=== PATIENT | male | born 1980 | race Caucasian/White ===

== ENCOUNTER 2019-09-04 15:52 | Inpatient (IN) | payer BC ==
[~2019-09-04 15:52] MED LIST: Iopamidol 370 76% 100 ML VIAL ONE
[2019-09-04] MEDS ORDERED: Rocuronium Bromide 10 MG/ML (10ML VIAL) ONE (16:04)
[2019-09-04 16:20] LABS: Actual Bicarbonate (HCO3a) 20.2 mEq/L (22-28); Analyzer IN Cardio ER; Base Excess (BEa) -4.9 mEq/L (-2.0 to +3.0); CO2 Tension 37.7 mmHg (35.0-45.0); Calcium, Ionized 1.27 mmol/L (1.12-1.30); Carboxyhemoglobin (COHb) 0.4 gm% (0.0-3.0); Hemoglobin (Hb) 14.8 g/dL (14.0-18.0); O2 Tension (PaO2) 63.3 mmHg (80.0-100.0); Potassium - ABG Lab 2.74 mmol/L (3.70-5.30); pH, Arterial 7.35 (7.35-7.45)
[2019-09-04 16:25] LABS: INR-International Normal Ratio 1.1; Prothrombin Time 13.8 SEC (12.0-14.7)
[2019-09-04 16:27] LABS: ALV-art Gradient 602.575 (0-20); Puncture Site RRA
[2019-09-04 16:28] LABS: #Basophils 0.1 thou/uL (0.0-0.2); #Eosinphils 0.2 thou/uL (0.0-0.7); #Lymphocytes 5.7 thou/uL (1.20-3.40); #Monocytes 0.9 thou/uL (0.11-0.59); %Eosinophils 1.1 % (0.0-10.0); %Lymphocytes 38.3 % (21.0-51.0); %Monocytes 5.7 % (0.0-10.0); %Neutrophils 53.8 % (42.0-75.0); Hemoglobin 15.2 g/dL (14.0-18.0); Mean Corpuscular HGB CONC 33.6 g/dL (32.0-36.0); Mean Corpuscular Volume 98.5 fL (78.0-98.0); Platelet Count 235 thou/uL (130-400); RBC Distribution Width 11.8 % (11.5-14.5); Red Blood Cell (RBC) Count 4.61 mill/uL (4.70-6.10); White Blood Cell (WBC) Count 14.9 thou/uL (4.8-10.8)
--- NOTE | 2019-09-04 16:34 | RAD ---
EXAM: CHEST ONE VIEW HISTORY: Cardiac arrest. COMPARISON: None FINDINGS: Endotracheal tube is noted in place with the tip of the endotracheal tube overlying the T1-2 level at the level of the thoracic inlet. Nasogastric tube is noted in place which courses into the upper abdomen. The distal tip is not imaged. Left subclavian central venous catheter is noted in place with tip overlying the expected location of the SVC. There is accentuation of the cardiac silhouette and bronchovascular markings due to a shallow depth of inspiration and the portable technique of the study. No consolidation or pleural fluid is seen. Pacing device overlies the right lower lateral chest. The osseous structures are intact. IMPRESSION: 1. Lines and tubes in place as described above. 2. Accentuation of the cardiac silhouette and bronchovascular markings due to shallow depth of inspir ation and portable technique.
[2019-09-04 16:39] LABS: ALT (SGPT) 211 U/L (8-55); AST (SGOT) 179 U/L (5-34); Alkaline Phosphatase 81 U/L (40-110); Anion Gap 21 mmol/L (10-20); BUN (Urea Nitrogen) 14 mg/dL (8.9-20.6); Bilirubin, Total 0.4 mg/dL (0.2-1.2); CK (CPK) 277 U/L (30-200); Calc. Creatinine Clearance 0 mL/min (70-130); Calcium 8.7 mg/dL (7.8-10.44); Carbon Dioxide 15 mmol/L (22-29); Chloride 106 mmol/L (98-107); Estimated GFR-MDRD 62; Globulin 2.7 g/dL (2.4-3.5); Glucose 201 mg/dL (70-105); Potassium 3.3 mmol/L (3.5-5.1); Protein, Total 6.7 g/dL (6.0-8.3); Sodium 139 mmol/L (136-145)
[2019-09-04] MEDS ORDERED: Propofol BOLUS 1,000 MG/100 ML VIAL IV PRN (16:45)
[2019-09-04] MEDS ORDERED: Lorazepam 2 MG/ML VIAL SLOW IVP PRN (16:45)
[2019-09-04] MEDS ORDERED: DISCONTINUE PREVIOUS NARCOTIC PAIN MEDICATIONS AND BENZODIAZEPINES FS SCH (16:45)
[2019-09-04] MEDS ORDERED: Morphine 2 MG/ML SYRINGE SLOW IVP PRN (16:45)
[2019-09-04 16:53] LABS: Acetaminophen Less than 6.0 mcg/mL (10.0-30.0); Alcohol Less than 10 mg/dL (Less than 10); Salicylate Less than 8.0 mg/dL (15.0-30.0)
--- NOTE | 2019-09-04 16:59 | CT ---
CT Brain WO Con: 09/04/2019 4:18 PM CLINICAL HISTORY: History of cardiac arrest; history of fall and collapse at the seen; history of V. tach. IMAGING TECHNIQUE: Multiple CT images were obtained of the brain without IV contrast. COMPARISON: None. FINDINGS: Brain: No acute infarct or hemorrhage is evident. No midline shift. Ventricles: Normal. No hydrocephalus.. Skull: Intact.. Visualized Paranasal sinuses: There is mild mucosal thickening within the posterior left ethmoid air cells.. Mastoid air cells:Clear. Extracranial soft tissues:Normal. IMPRESSION: No acute intracranial abnormality.
--- NOTE | 2019-09-04 17:06 | CT ---
EXAM: CTA of the chest and abdomen HISTORY: Cardiac arrest COMPARISON: None TECHNIQUE: Multiple contiguous axial images were obtained a CTA of the chest and abdomen with contras t per aortic dissection protocol. Sagittal and coronal 3-D MIP reformats were performed. FINDINGS: HEART: Normal in size without focal cardiac abnormality. PULMONARY ARTERIES: Normal in caliber without filling defects to suggest pulmonary emboli. MEDIASTINUM: No hilar or mediastinal lymphadenopathy. There is an endotracheal tube with its tip abov e the ashley. LUNGS: Bilateral dependent atelectasis versus infiltrates. PLEURAL SPACE: No pleural effusion or pneumothorax. CHEST AND ABDOMINAL WALL SOFT TISSUES: A left subclavian central venous catheter seen with its tip in the superior vena cava. LIVER: Unremarkable. GALLBLADDER: Unremarkable. KIDNEYS: 4 mm nonobstructing left renal calcification.. SPLEEN: Unremarkable. PANCREAS: Unremarkable. BOWEL: Unremarkable. An NG tube is seen in the stomach. RETROPERITONEUM: No lymphadenopathy BONES: Unremarkable ASCENDING THORACIC AORTA: Normal caliber without evidence of dissection or aneurysmal dilatation. DESCENDING THORACIC AORTA: Normal caliber without evidence of dissection or aneurysmal dilatation. ABDOMINAL AORTA: Normal caliber without evidence of dissection or aneurysmal dilatation. CELIAC TRUNK: Patent SMA: Patent MISTY: Patent RENAL ARTERIES: Bilateral single renal arteries without significant atherosclerotic disease IMPRESSION: 1. No evidence of thoracic or abdominal aortic aneurysm or dissection 2. Nonobstructing left renal calcification
[2019-09-04] MEDS ORDERED: Lorazepam 2 MG/ML VIAL ONE ×3 (17:20→18:14)
[2019-09-04] MEDS ORDERED: Midazolam HCl 2 mg/2 ml Vial ONE (17:38)
[2019-09-04] MEDS ORDERED: Aspirin Chewable 81 MG TAB ONE (17:59)
--- NOTE | 2019-09-04 18:06 | RAD ---
EXAM: Single view of the chest HISTORY: Post intubation COMPARISON: 09/04/2019 FINDINGS: Single view of the chest shows an enlarged but stable cardiomediastinal silhouette. There i s an NG tube with its tip in the upper esophagus. The endotracheal tube and central venous catheter are unchanged in position. There is no evidence of consolidation, mass, or pleural effusion. The bon es are unremarkable. IMPRESSION: Malpositioned NG tube.
[2019-09-04] MEDS ORDERED: levETIRAcetam In NaCl (Iso-Os) 1,000 MG in Premix Bag 1 BAG IVPB ONE (18:15)
[2019-09-04] MEDS ORDERED: Propofol 1,000 MG/100 ML VIAL IV ONE (18:24)
[2019-09-04 18:36] LABS: Phosphorus 5.9 mg/dL (2.3-4.7)
[2019-09-04] MEDS ORDERED: Ondansetron PF 4 MG/2 ML Vial IVP PRN (19:39)
[2019-09-04] MEDS ORDERED: Ondansetron ODT 4 MG TAB SL PRN (19:39)
[2019-09-04] MEDS ORDERED: Sodium Chloride 0.9% 1,000 ML IV SCH (19:39)
[2019-09-04 20:35] LABS: Actual Bicarbonate (HCO3a) 22.3 mEq/L (22-28); Base Excess (BEa) -1.8 mEq/L (-2.0 to +3.0); CO2 Tension 36.1 mmHg (35.0-45.0); Carboxyhemoglobin (COHb) 0.8 gm% (0.0-3.0); Hemoglobin (Hb) 14.9 g/dL (14.0-18.0); O2 Tension (PaO2) 183.1 mmHg (80.0-100.0); pH, Arterial 7.41 (7.35-7.45)
[2019-09-04 20:36] LABS: ALV-art Gradient 199.575 (0-20); Puncture Site LBA
[2019-09-04 20:38] LABS: Lactic Acid 3.4 mmol/L (0.5-2.2)
[2019-09-04 20:42] LABS: Calcium 9.4 mg/dL (7.8-10.44); Phosphorus 4.1 mg/dL (2.3-4.7)
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
[2019-09-04] MEDS: Famotidine/PF 20 mg/2ml Vial SLOW IVP SCH (22:22)
[2019-09-04] MEDS: Amiodarone 450 MG, Admixture Fee 1 EACH in Dextrose 5% in Water 250 ML IVPB SCH (22:25)
[2019-09-04 23:06] LABS: #Eosinphils 0.1 thou/uL (0.0-0.7); #Lymphocytes 0.6 thou/uL (1.20-3.40); #Neutrophils 10.2 thou/uL (1.40-6.50); %Basophils 0.2 % (0.0-1.0); %Eosinophils 0.5 % (0.0-10.0); %Lymphocytes 4.9 % (21.0-51.0); %Monocytes 8.1 % (0.0-10.0); %Neutrophils 86.3 % (42.0-75.0); Mean Corpuscular HGB CONC 34.4 g/dL (32.0-36.0); Mean Platelet Volume 8.1 fL (7.4-10.4); Platelet Count 202 thou/uL (130-400); Red Blood Cell (RBC) Count 4.23 mill/uL (4.70-6.10); White Blood Cell (WBC) Count 11.8 thou/uL (4.8-10.8)
[2019-09-04 23:11] LABS: PTT 23.5 SEC (22.9-36.1); Prothrombin Time 13.4 SEC (12.0-14.7)
[2019-09-04 23:23] LABS: Bacteria/HPF None Seen HPF (None Seen); Bilirubin Negative (Negative); Blood, Urine Trace (Negative); Clarity Extra Turbid (Clear); Glucose, Urine (Dipstick) Normal (Negative); Leukocyte Negative Leu/uL (Negative); Nitrite Negative (Negative); Protein, Urine (Dipstick) 30 mg/dL (Neg-Trace); RBC/HPF 0-3 HPF (0-3); Squamous Epithelial None Seen HPF (0-3); Urobilinogen Normal mg/dL (Less than 2); WBC/HPF 0-3 HPF (0-3)
[2019-09-04 23:24] LABS: Cocaine Metabolite Screen Not Detected (NotDetected); Medtox Reader # READER 4; Phencyclidine (PCP) Not Detected (NotDetected); THC/Cannabinoid Screen Not Detected (NotDetected)
[2019-09-04 23:25] LABS: Amphetamine Not Detected (NotDetected); Barbiturates Screen Not Detected (NotDetected); Benzodiazepine Screen Detected (NotDetected); Medtox Control Line Valid? VALID (VALID); Methadone Not Detected (NotDetected); Methamphetamine Not Detected (NotDetected); Opiate Screen Not Detected (NotDetected); Oxycodone Screen Not Detected (NotDetected); Tricyclic Screen Not Detected (NotDetected)
[2019-09-04 23:30] LABS: Anion Gap 13 mmol/L (10-20); BUN (Urea Nitrogen) 15 mg/dL (8.9-20.6); Calc. Creatinine Clearance 154 mL/min (70-130); Carbon Dioxide 25 mmol/L (22-29); Chloride 104 mmol/L (98-107); Estimated GFR-MDRD 86; Glucose 108 mg/dL (70-105); Phosphorus 2.5 mg/dL (2.3-4.7); Sodium 138 mmol/L (136-145)
[2019-09-04 23:53] LABS: CKMB 4.8 ng/mL (0-6.6)
[2019-09-05 00:11] LABS: Magnesium 1.9 mg/dL (1.6-2.6)
[2019-09-05] MEDS: fentaNYL Citrate/PF 2,000 MCG in Sodium Chloride 0.9% 60 ML IV SCH ×2 (01:13→17:56)
[2019-09-05] MEDS ORDERED: Vecuronium 10 MG VIAL IV PRN (02:00)
[2019-09-05] MEDS ORDERED: Midazolam HCl 2 mg/2 ml Vial SLOW IVP SCH (02:00)
[2019-09-05] MEDS ORDERED: DO NOT USE PRE-EXISTING LYTE PROTOCOL FS SCH (02:00)
[2019-09-05] MEDS ORDERED: Norepinephrine 8 MG/0.9% NS 250 ML IVPB SCH (02:46)
[2019-09-05 04:45] LABS: #Eosinphils 0.1 thou/uL (0.0-0.7); #Lymphocytes 1.5 thou/uL (1.20-3.40); #Monocytes 0.9 thou/uL (0.11-0.59); #Neutrophils 5.7 thou/uL (1.40-6.50); %Basophils 0.4 % (0.0-1.0); %Eosinophils 0.8 % (0.0-10.0); %Lymphocytes 18.5 % (21.0-51.0); %Monocytes 11.1 % (0.0-10.0); %Neutrophils 69.3 % (42.0-75.0); Hemoglobin 13.4 g/dL (14.0-18.0); Mean Corpuscular Hemoglobin 32.7 pg (27.0-31.0); Mean Corpuscular Volume 96.3 fL (78.0-98.0); Mean Platelet Volume 7.9 fL (7.4-10.4); Platelet Count 167 thou/uL (130-400); RBC Distribution Width 11.9 % (11.5-14.5); Red Blood Cell (RBC) Count 4.08 mill/uL (4.70-6.10); White Blood Cell (WBC) Count 8.2 thou/uL (4.8-10.8)
[2019-09-05 04:49] LABS: INR-International Normal Ratio 1.1; PTT 25.8 SEC (22.9-36.1); Prothrombin Time 13.7 SEC (12.0-14.7)
[2019-09-05 05:04] LABS: Anion Gap 12 mmol/L (10-20); BUN (Urea Nitrogen) 13 mg/dL (8.9-20.6); Calc. Creatinine Clearance 176 mL/min (70-130); Calcium 9.1 mg/dL (7.8-10.44); Carbon Dioxide 25 mmol/L (22-29); Chloride 107 mmol/L (98-107); Estimated GFR-MDRD Greater than 90; Glucose 111 mg/dL (70-105); Potassium 3.8 mmol/L (3.5-5.1); Sodium 140 mmol/L (136-145)
[2019-09-05 05:06] LABS: Magnesium 1.9 mg/dL (1.6-2.6); Phosphorus 2.4 mg/dL (2.3-4.7)
[2019-09-05 05:13] LABS: Critical Call Chem Troponin I RESULT DECREASING; Troponin I 0.564 ng/mL (< 0.028)
[2019-09-05] MEDS ORDERED: FLU VACC QS2019-20(6MOS UP)/PF 60 MCG/0.5 ML SYRINGE IM ONE (07:30)
--- NOTE | 2019-09-05 08:36 | CON ---
DATE OF CONSULTATION: HISTORY OF PRESENT ILLNESS: Edwin Abraham is a 39-year-old gentleman, who was brought into the ER last night after he had apparently a cardiac arrest. He owns a construction company. Apparently, he collapsed at work. He was found to be in VFib, ventricular tachycardia, pulseless electrical activity. As per the EMS, CPR was initiated. Given 3 amps of epi, 300 mg amiodarone, intubated, LMA placed and transferred to [facility] where seen by the ER physician and ongoing additional prolonged CPR, shock off, he was revived after 20 minutes in the ER. These findings were discussed with the hospitalist extrusion machine operator last night. He was placed apparently on a hypothermia protocol as per my suggestion. Unfortunately, he was shivering throughout the night and received maximum fentanyl and propofol. He was given paralytics at 0200 hours in the morning. Apparently, this morning became more responsive, more appropriate. His hypothermia protocol was discontinued. His fiancee is at the bedside who states that he had a physical a year ago. He takes no medication. He has never been to the hospital. PAST MEDICAL HISTORY: Apparently unremarkable. PAST SURGICAL HISTORY: None. CHRONIC MEDICATIONS: None. ALLERGIES: NONE. SOCIAL HISTORY: He owns a construction company. PHYSICAL EXAMINATION: VITAL SIGNS: He is still on fentanyl and Diprivan. His pulse is 90, blood pressure 90/80, respirations are 20. HEENT: Pupils are equal. CHEST: Decreased breath sounds. No wheezing. CARDIAC: Normal S1, S2. No gallops. ABDOMEN: Soft. No masses. LABORATORY DATA: White count 8000, H and H 13 and 39, platelet count 167. Lytes are normal. CK-MB is abnormal. Urine is normal. He had benzos in his urine. Chest x-ray was normal on admission, slight cardiomegaly. CT brain showed no acute abnormality. CT chest dissection protocol, no aneurysm or dissection was seen. There is a nonobstructive left renal calculi. IMPRESSION: Status post cardiopulmonary arrest, ejection fraction 20%. PLAN: Await input from Cardiology. Continue vent support. Discontinue paralytics. Start nutrition 24-48 hours. PT subsequently. 45 minutes of critical time. Job ID: [id number]
--- NOTE | 2019-09-05 08:40 | PDOC.HOSPP ---
- Subjective Encounter Date: 09/05/19 Encounter Time: 08:38 Subjective: Mr. Abraham was seen today in follow-up of out of hospital cardiac arrest. He is currently intubated. He is moving all extremities. He was reported to have squeezed the nurses hand on command. - Objective Vital Signs & Weight: Vital Signs (12 hours) Pulse Resp BP 09/05/19 08:15 78 104/75 09/05/19 06:00 20 09/05/19 04:00 20 09/05/19 02:00 20 09/05/19 00:00 20 09/04/19 22:00 20 Weight Weight 239 lb 3.225 oz Most Recent Monitor Data Heart Rate from ECG 84 NIBP 94/64 NIBP BP-Mean 78 Respiration from ECG 20 SpO2 100 I&O: 09/04/19 09/05/19 09/06/19 06:59 06:59 06:59 Intake Total 1999.0 38.3 Output Total 815 125 Balance 1184.0 -86.7 Result Diagrams: 09/05/19 04:20 09/05/19 04:20 Additional Labs: Accuchecks 09/04/19 16:20 POC Glucose 170 H Hospitalist ROS - Medication Medications: Active Medications Generic Name Dose Route Start Last Admin Trade Name Freq PRN Reason Stop Dose Admin Famotidine 20 mg 09/04/19 21:00 09/04/19 22:22 Pepcid SLOW IVP 20 mg Q12HR IZABELLA Administration Fentanyl Citrate 2,000 mcg/ 100 mls @ 0 mls/hr 09/04/19 16:24 09/05/19 01:13 Sodium Chloride IV 10/04/19 16:24 100 mls INF IZABELLA Administration Protocol Per Protocol Amiodarone HCl 450 mg/ 259 mls @ 0 mls/hr 09/04/19 22:15 09/04/19 22:25 Miscellaneous Medication 1 IVPB 259 mls each/ Dextrose/Water INF IZABELLA Administration Protocol As Directed Lorazepam 2 mg 09/04/19 16:45 09/04/19 21:24 Ativan SLOW IVP 10/04/19 16:45 2 mg Q1H PRN Administration Breakthrough agitation Sodium Chloride 10 ml 09/04/19 21:00 09/04/19 22:22 Flush - Normal Saline IVF 10 ml Q12HR IZABELLA Administration Vecuronium [place] 10 mg 09/05/19 02:00 09/05/19 05:23 Norcuron IV 10 mg Q30MIN PRN Administration SHIVERING - Exam Eye: PERRL Heart: RRR, no murmur, no gallops, no rubs, normal peripheral pulses Respiratory: CTAB (with some rhonchi bilaterally), no rales Gastrointestinal: soft, non-distended, normal bowel sounds Extremities: no cyanosis, no clubbing, no edema Hosp A/P (1) Cardiac arrest Code(s): I46.9 - CARDIAC ARREST, CAUSE UNSPECIFIED Status: Acute (2) Cardiomyopathy Code(s): I42.9 - CARDIOMYOPATHY, UNSPECIFIED Status: Acute (3) Acute respiratory failure with hypoxia Code(s): J96.01 - ACUTE RESPIRATORY FAILURE WITH HYPOXIA Status: Acute - Plan * Patient is s/p out of hospital cardiac arrest. He had ROSC after 2 episodes of CPR. He has been found to have a Cardiomyopathy with an EF of 20-25% * Discussed with Dr. Wilson * Will begin to re-warm him * Plan is for cardiac cath today * Ventilator management as per Pulmonology
[2019-09-05] MEDS ORDERED: Enoxaparin Sodium 40 MG/0.4 ML SYRINGE SC SCH (09:00)
[2019-09-05] MEDS ORDERED: Iopamidol 370 76% 100 ML VIAL ONE (09:23)
--- NOTE | 2019-09-05 09:49 | RAD ---
XR Chest 1 View Portable History: Ventilated patient Comparison: Radiograph prior day Findings: Endotracheal tube tip just below the level of the clavicles. No enteric tube is appreciated . Central venous catheter tip mid SVC. Small effusions. Scattered atelectasis. No pneumothorax. Impression: Interval removal of the enteric tube otherwise similar exam.
[2019-09-05] MEDS: Propofol 1,000 MG/100 ML VIAL IV PRN ×4 (09:51→22:50)
[2019-09-05] MEDS: Famotidine/PF 20 mg/2ml Vial SLOW IVP SCH ×2 (09:52→20:46)
[2019-09-05 10:28] LABS: #Eosinphils 0.1 thou/uL (0.0-0.7); #Lymphocytes 0.8 thou/uL (1.20-3.40); #Monocytes 1.1 thou/uL (0.11-0.59); #Neutrophils 8.3 thou/uL (1.40-6.50); %Basophils 0.1 % (0.0-1.0); %Eosinophils 0.5 % (0.0-10.0); %Lymphocytes 7.3 % (21.0-51.0); Hemoglobin 13.8 g/dL (14.0-18.0); Mean Corpuscular HGB CONC 34.6 g/dL (32.0-36.0); Mean Corpuscular Hemoglobin 33.4 pg (27.0-31.0); Mean Corpuscular Volume 96.6 fL (78.0-98.0); Mean Platelet Volume 8.2 fL (7.4-10.4); Platelet Count 161 thou/uL (130-400); RBC Distribution Width 11.8 % (11.5-14.5); Red Blood Cell (RBC) Count 4.12 mill/uL (4.70-6.10); White Blood Cell (WBC) Count 10.2 thou/uL (4.8-10.8)
[2019-09-05 10:35] LABS: PTT 25.9 SEC (22.9-36.1); Prothrombin Time 13.7 SEC (12.0-14.7)
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
[2019-09-05 11:13] LABS: Anion Gap 13 mmol/L (10-20); BUN (Urea Nitrogen) 11 mg/dL (8.9-20.6); Calc. Creatinine Clearance 193 mL/min (70-130); Calcium 8.7 mg/dL (7.8-10.44); Carbon Dioxide 22 mmol/L (22-29); Chloride 107 mmol/L (98-107); Estimated GFR-MDRD Greater than 90; Glucose 108 mg/dL (70-105); Magnesium 1.9 mg/dL (1.6-2.6); Phosphorus 2.5 mg/dL (2.3-4.7); Potassium 3.7 mmol/L (3.5-5.1); Sodium 138 mmol/L (136-145)
[2019-09-05] MEDS ORDERED: Lidocaine 1% (PF) 30 ML VIAL ONE (11:32)
[2019-09-05 11:43] LABS: CKMB 27.8 ng/mL (0-6.6)
[2019-09-05] MEDS: Amiodarone 450 MG, Admixture Fee 1 EACH in Dextrose 5% in Water 250 ML IVPB SCH (14:01)
[2019-09-05] MEDS: Acetaminophen 650 MG Suppository PR PRN (15:29)
[2019-09-05] MEDS ORDERED: Verapamil 5 MG/2 ML VIAL ONE (16:07)
[2019-09-05] MEDS ORDERED: Heparin 10,000 UNITS/1 ML VIAL ONE (16:07)
[2019-09-05] MEDS ORDERED: Nitroglycerin 100MG/250ML BOT 250 ML ONE (16:07)
[2019-09-05] MEDS ORDERED: Fentanyl 100 MCG/2 ML VIAL ONE (16:23)
[2019-09-05 17:21] LABS: #Basophils 0.1 thou/uL (0.0-0.2); #Eosinphils 0.2 thou/uL (0.0-0.7); #Lymphocytes 1.1 thou/uL (1.20-3.40); #Monocytes 1.1 thou/uL (0.11-0.59); #Neutrophils 7.2 thou/uL (1.40-6.50); %Basophils 0.5 % (0.0-1.0); %Eosinophils 1.7 % (0.0-10.0); %Lymphocytes 11.7 % (21.0-51.0); %Monocytes 11.1 % (0.0-10.0); Hemoglobin 12.6 g/dL (14.0-18.0); Mean Corpuscular HGB CONC 33.9 g/dL (32.0-36.0); Mean Corpuscular Volume 97.6 fL (78.0-98.0); Mean Platelet Volume 8.1 fL (7.4-10.4); Platelet Count 148 thou/uL (130-400); Red Blood Cell (RBC) Count 3.82 mill/uL (4.70-6.10); White Blood Cell (WBC) Count 9.6 thou/uL (4.8-10.8)
[2019-09-05 17:28] LABS: INR-International Normal Ratio 1.1; PTT 35.8 SEC (22.9-36.1); Prothrombin Time 14.4 SEC (12.0-14.7)
[2019-09-05 17:45] LABS: Anion Gap 12 mmol/L (10-20); BUN (Urea Nitrogen) 10 mg/dL (8.9-20.6); Calc. Creatinine Clearance 179 mL/min (70-130); Calcium 8.3 mg/dL (7.8-10.44); Carbon Dioxide 22 mmol/L (22-29); Chloride 108 mmol/L (98-107); Estimated GFR-MDRD Greater than 90; Glucose 101 mg/dL (70-105); Magnesium 1.6 mg/dL (1.6-2.6); Potassium 3.8 mmol/L (3.5-5.1); Sodium 138 mmol/L (136-145)
[2019-09-05] MEDS ORDERED: Nitroglycerin 0.4 MG TAB (25 Tab Bottle) SL PRN (17:57)
[2019-09-05] MEDS ORDERED: Acetaminophen/Codeine 30-300mg Tablet PO PRN (17:57)
[2019-09-05] MEDS ORDERED: Sodium Chloride 0.9% 200 ML IV PRN (17:57)
[2019-09-05] MEDS ORDERED: Enoxaparin Sodium 60 MG/0.6 ML SYRINGE SC SCH (18:00)
[2019-09-05 18:13] LABS: CKMB 21.4 ng/mL (0-6.6); Critical Call CKMB RESULT DECREASING
--- NOTE | 2019-09-05 19:20 | RAD ---
EXAM: Single view of the abdomen HISTORY: OG tube placement COMPARISON: None FINDINGS: Single view of the abdomen shows a nonspecific, nonobstructive bowel gas pattern. An NG tub e is seen in the stomach. There may be a calcification projecting over the left renal shadow. The bones are unremarkable. IMPRESSION: 1. OG tube located in the stomach 2. Left nephrolithiasis
[2019-09-06] MEDS: Acetaminophen 650 MG Suppository PR PRN (01:17)
[2019-09-06] MEDS: Amiodarone 450 MG, Admixture Fee 1 EACH in Dextrose 5% in Water 250 ML IVPB SCH (04:02)
[2019-09-06] MEDS: Propofol 1,000 MG/100 ML VIAL IV PRN ×2 (04:03→05:33)
[2019-09-06 05:54] LABS: #Eosinphils 0.1 thou/uL (0.0-0.7); #Lymphocytes 1.5 thou/uL (1.20-3.40); #Monocytes 1.1 thou/uL (0.11-0.59); #Neutrophils 6.9 thou/uL (1.40-6.50); %Basophils 0.5 % (0.0-1.0); %Eosinophils 1.4 % (0.0-10.0); %Monocytes 10.9 % (0.0-10.0); %Neutrophils 71.2 % (42.0-75.0); Hemoglobin 11.8 g/dL (14.0-18.0); Mean Corpuscular HGB CONC 32.9 g/dL (32.0-36.0); Mean Corpuscular Hemoglobin 31.8 pg (27.0-31.0); Mean Corpuscular Volume 96.6 fL (78.0-98.0); Mean Platelet Volume 8.4 fL (7.4-10.4); Platelet Count 146 thou/uL (130-400); RBC Distribution Width 11.9 % (11.5-14.5); White Blood Cell (WBC) Count 9.6 thou/uL (4.8-10.8)
[2019-09-06 06:17] LABS: Anion Gap 13 mmol/L (10-20); BUN (Urea Nitrogen) 11 mg/dL (8.9-20.6); Calc. Creatinine Clearance 152 mL/min (70-130); Calcium 8.7 mg/dL (7.8-10.44); Carbon Dioxide 23 mmol/L (22-29); Chloride 107 mmol/L (98-107); Estimated GFR-MDRD 84; Glucose 104 mg/dL (70-105); Potassium 3.7 mmol/L (3.5-5.1); Sodium 139 mmol/L (136-145)
[2019-09-06] MEDS: Acetaminophen 650 MG/20.3 ML UDCUP PO PRN (07:42)
--- NOTE | 2019-09-06 08:07 | RAD ---
EXAM: CHEST ONE VIEW HISTORY: On ventilator. Follow-up evaluation. COMPARISON: 09/05/2019. FINDINGS: Endotracheal tube remains in place with tip overlying the region of the T2 vertebral body. Nasogastri c tube has been placed in the interim which courses into the upper abdomen. The tip is not imaged. child monitor leads again overlie the chest. Left subclavian central venous catheter is stable in p osition. This examination is obtained in a shallow depth of inspiration which accentuates the cardiac silhouette and bronchovascular markings. Subsegmental atelectasis at the right lung base is a gain seen. There is increased density at the left lung base which may be related to atelectasis, left pleural effusion or possibly superimposed infiltrate/pneumonia. There has been no significant in terval change from prior study. IMPRESSION: Interval placement of a nasogastric tube, but the chest is otherwise stable.
[2019-09-06] MEDS ORDERED: DC Sedation Protocol FS ONE (08:40)
--- NOTE | 2019-09-06 08:53 | PDOC.CPN ---
- Subjective Date: 09/06/19 Time: 08:53 Interval history: The pt seen and examined. No overnight events. He is on Vent with sedation. He opened his eyes with verbal stimulation. Per family, he respond well yesterday. - Objective Allergies/Adverse Reactions: Allergies Allergy/AdvReac Type Severity Reaction Status Date / Time No Allergy Information Allergy Verified 09/05/19 07:55 Available Visit Medications: Current Medications Acetaminophen (Tylenol Elixir) 650 mg PO Q4H PRN PRN Reason: Headache/Fever/Mild Pain (1-3) Last Admin: 09/06/19 07:42 Dose: 650 mg Acetaminophen/Codeine Phosphate (Tylenol #3) 1 tab PO Q4H PRN PRN Reason: Mild Pain (1-3) Acetaminophen/Codeine Phosphate (Tylenol #3) 2 tab PO Q4H PRN PRN Reason: Moderate Pain (4-6) Enoxaparin Sodium (Lovenox) 60 mg SC DAILY IZABELLA Famotidine (Pepcid) 20 mg SLOW IVP Q12HR IZABELLA Last Admin: 09/05/19 20:46 Dose: 20 mg Fentanyl Citrate 2,000 mcg/ (Sodium Chloride) 100 mls @ 0 mls/hr IV INF IZABELLA; Protocol Stop: 10/04/19 16:24 Last Admin: 09/05/19 17:56 Dose: 100 mls Levetiracetam 500 mg/ Device 100 mls @ 200 mls/hr IVPB BID IZABELLA Last Admin: 09/05/19 20:46 Dose: 100 mls Amiodarone HCl 450 mg/Miscellaneous Medication 1 each/ Dextrose/Water 259 mls @ 0 mls/hr IVPB INF IZABELLA; Protocol Last Admin: 09/06/19 04:02 Dose: 259 mls Norepinephrine Bitartrate (Levophed) 250 mls @ 0 mls/hr IVPB INF IZABELLA; Protocol Sodium Chloride (Normal Saline 0.9%) 200 mls @ 0 mls/hr IV ONE PRN PRN Reason: SBP < 90 Stop: 09/06/19 17:58 Ceftriaxone Sodium 1 gm/ (Sodium Chloride) 100 mls @ 200 mls/hr IVPB Q24HR I[facility]A Lorazepam (Ativan) 2 mg SLOW IVP Q1H PRN PRN Reason: Breakthrough agitation Stop: 10/04/19 16:45 Last Admin: 09/04/19 21:24 Dose: 2 mg Miscellaneous Information (Communication Order-Pharmacy) 1 each FS .COMMUNICATION IZABELLA Miscellaneous Medication (Dc Sedation Protocol) 1 each FS ONE ONE Stop: 09/06/19 08:41 Morphine Sulfate (Morphine) 2 mg SLOW IVP Q1H PRN PRN Reason: BREAKTHROUGH PAIN/Agitation Stop: 10/04/19 16:45 Nitroglycerin (Nitrostat) 0.4 mg SL Q5MIN PRN PRN Reason: Chest Pain Discontinue Previous Narcotic Pain Medications And Benzodiazepines 1 each FS .ONE IZABELLA Stop: 10/04/19 16:45 Propofol (Diprivan) 1,000 mg IV INF PRN; Protocol PRN Reason: TO ACHIEVE GOAL RASS Stop: 10/04/19 16:45 Last Admin: 09/06/19 05:33 Dose: 1,000 mg Propofol (Diprivan Bolus) 20 mg IV Q5MIN PRN PRN Reason: BREAKTHROUGH AGITATION Stop: 10/04/19 16:45 Sodium Chloride (Flush - Normal Saline) 10 ml IVF Q12HR IZABELLA Last Admin: 09/05/19 20:47 Dose: 10 ml Sodium Chloride (Flush - Normal Saline) 10 ml IVF PRN PRN PRN Reason: Saline Flush Vital Signs & Weight: Vital Signs Pulse Resp 09/06/19 08:00 22 H 09/06/19 07:30 91 09/06/19 06:00 20 09/06/19 04:00 20 09/06/19 02:26 81 09/06/19 02:00 20 09/06/19 00:00 20 09/05/19 22:11 79 09/05/19 22:00 20 Admit Weight 239 lb 3.225 oz Weight 239 lb 3.225 oz - Physical Exam Cardiac: regular rate and rhythm, S1/S2 Lungs: decreased breath sounds Skin: clear - Labs Result Diagrams: 09/06/19 12:57 09/06/19 12:57 Troponin/CKMB CK-MB (CK-2) 21.4 ng/mL (0-6.6) H* 09/05/19 17:00 Troponin I 0.189 ng/mL (< 0.028) H 09/05/19 17:00 - Telemetry Sinus rhythms and dysrhythmias: sinus rhythm - Assessment/Plan Assessment/Plan: 1. 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 3. Acute on Chronic systolic HF MAR reviewed * Echo on 09/05/2019 with EF 20-25%, global hypokinesis, mild MR and TR Pt. seen and eval. by me. He is extubated. RRR. Neurologically seems to be recovering. No arrhythmias. Tender chest wall s/p CPR. Movement of the ant. chest ribs with palpation. Likely fractures s/p CPR. Plan for AICD tomorrow. Start Coreg and lisinopril when stable or start cozaar with the plan to switch to Entresto or possibly just start Entresto.
--- NOTE | 2019-09-06 09:12 | PRG ---
DATE OF SERVICE: 09/06/2019 SUBJECTIVE: This morning, he is awake, and responsive. X-ray still shows cardiomegaly. OBJECTIVE: VITAL SIGNS: Pulse 90, respiratory rate 22, blood pressure . CHEST: Decreased breath sounds. No wheezing. Bilateral crackles and rhonchi anteriorly. CARDIAC: Normal S1 and S2. No gallops. ABDOMEN: No masses. LABORATORY DATA: Lytes are normal. Troponin is elevated. White count 9000, H and H are 11 and 36. X-ray shows cardiomegaly, bibasilar atelectatic changes. IMPRESSION: 1. Respiratory failure. 2. Cardiomyopathy. 3. Status post ventricular tachycardia. PLAN: He went to the cardiac cath last night. Apparently, cords were normal. Wean and extubate. Empiric antibiotics. Supportive care. One-half hour of critical time. Job ID: [id number]
--- NOTE | 2019-09-06 09:20 | PDOC.HOSPP ---
- Subjective Encounter Date: 09/06/19 Encounter Time: 09:18 Subjective: Mr. Helton was seen today in follow-up of cardiomyopathy with sudden . He is now extubated. He is awake and alert, but confused about what has happened over the past 2 days. He notes soreness in his chest. - Objective Vital Signs & Weight: Vital Signs (12 hours) Pulse Resp 09/06/19 08:00 22 H 09/06/19 07:30 91 09/06/19 06:00 20 09/06/19 04:00 20 09/06/19 02:26 81 09/06/19 02:00 20 09/06/19 00:00 20 09/05/19 22:11 79 09/05/19 22:00 20 Weight Admit Weight 239 lb 3.225 oz Weight 239 lb 3.225 oz Most Recent Monitor Data Heart Rate from ECG 92 NIBP 105/65 NIBP BP-Mean 77 Respiration from ECG 19 SpO2 97 I&O: 09/05/19 09/06/19 09/07/19 06:59 06:59 06:59 Intake Total 1999.0 1508.1 Output Total 815 947 5 Balance 1184.0 561.1 -5 Result Diagrams: 09/06/19 05:30 09/06/19 05:30 Hospitalist ROS - Medication Medications: Active Medications Generic Name Dose Route Start Last Admin Trade Name Freq PRN Reason Stop Dose Admin Acetaminophen 650 mg 09/06/19 07:22 09/06/19 07:42 Tylenol Elixir PO 650 mg Q4H PRN Administration Headache/Fever/Mild Pain (1-3) Famotidine 20 mg 09/04/19 21:00 09/05/19 20:46 Pepcid SLOW IVP 20 mg Q12HR IZABELLA Administration Levetiracetam 500 mg/ Device 100 mls @ 200 mls/hr 09/05/19 09:00 09/05/19 20: 46 IVPB 100 mls BID IZABELLA Administration Amiodarone HCl 450 mg/ 259 mls @ 0 mls/hr 09/04/19 22:15 09/06/19 04:02 Miscellaneous Medication 1 IVPB 259 mls each/ Dextrose/Water INF IZABELLA Administration Protocol As Directed Sodium Chloride 10 ml 09/04/19 21:00 09/05/19 20:47 Flush - Normal Saline IVF 10 ml Q12HR IZABELLA Administration - Exam Eye: PERRL Heart: RRR, no murmur, normal peripheral pulses Heart - other findings: + S3 Respiratory: CTAB (except occasional rhonchi) Gastrointestinal: soft, non-tender, non-distended, normal bowel sounds, no palpable masses, no hepatomegaly Extremities: no cyanosis, no clubbing, no edema Psychiatric: normal affect, A&O x 3 Hosp A/P (1) Cardiac arrest Code(s): I46.9 - CARDIAC ARREST, CAUSE UNSPECIFIED Status: Acute (2) Cardiomyopathy Code(s): I42.9 - CARDIOMYOPATHY, UNSPECIFIED Status: Acute (3) Acute respiratory failure with hypoxia Code(s): J96.01 - ACUTE RESPIRATORY FAILURE WITH HYPOXIA Status: Acute - Plan * Cardiomyopathy with sudden -Discussed with Dr. Wilson. He has normal coronary arteries. * He has been evaluated by EP, and the plan is the placement of a defibrillator * Respiratory failure- improved- he has been extubated. He will need pain control, and aggressive pulmonary toilet
[2019-09-06] MEDS ORDERED: Ipratropium Bromide 2.5 ml Neb NEB PRN (09:28)
[2019-09-06] MEDS ORDERED: Furosemide 20 MG/2 ML VIAL SLOW IVP SCH (09:30)
[2019-09-06] MEDS ORDERED: Carvedilol 3.125 MG TAB PO SCH (09:30)
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
[2019-09-06] MEDS: Famotidine/PF 20 mg/2ml Vial SLOW IVP SCH ×2 (10:38→21:08)
[2019-09-06] MEDS: Enoxaparin Sodium 60 MG/0.6 ML SYRINGE SC SCH (10:38)
[2019-09-06] MEDS: cefTRIAXone\\ROCEPHIN 1 GM in Sodium Chloride 0.9% 100 ML IVPB SCH (11:32)
[2019-09-06 13:05] LABS: #Monocytes 1.2 thou/uL (0.11-0.59); #Neutrophils 9.8 thou/uL (1.40-6.50); %Basophils 0.3 % (0.0-1.0); %Eosinophils 0.3 % (0.0-10.0); %Lymphocytes 8.1 % (21.0-51.0); %Monocytes 9.8 % (0.0-10.0); %Neutrophils 81.5 % (42.0-75.0); Hemoglobin 12.6 g/dL (14.0-18.0); Mean Corpuscular HGB CONC 33.9 g/dL (32.0-36.0); Mean Corpuscular Hemoglobin 32.7 pg (27.0-31.0); Mean Corpuscular Volume 96.4 fL (78.0-98.0); Platelet Count 161 thou/uL (130-400); RBC Distribution Width 11.8 % (11.5-14.5); Red Blood Cell (RBC) Count 3.87 mill/uL (4.70-6.10)
[2019-09-06 13:27] LABS: Anion Gap 14 mmol/L (10-20); BUN (Urea Nitrogen) 10 mg/dL (8.9-20.6); Calc. Creatinine Clearance 157 mL/min (70-130); Calcium 8.9 mg/dL (7.8-10.44); Carbon Dioxide 24 mmol/L (22-29); Chloride 106 mmol/L (98-107); Estimated GFR-MDRD 87; Glucose 107 mg/dL (70-105); Potassium 3.7 mmol/L (3.5-5.1); Sodium 140 mmol/L (136-145)
[2019-09-06] MEDS: Amiodarone 200 MG TAB PO SCH ×2 (15:09→21:09)
[2019-09-06] MEDS: Acetaminophen/Codeine 30-300mg Tablet PO PRN (15:09)
--- NOTE | 2019-09-06 15:29 | PDOC.CPN ---
- Subjective Date: 09/06/19 Time: 08:00 Interval history: EP PROGRESS NOTE: 09/06/19 Follow up after VF arrest. Patient just extubated and is somewhat disoriented from his recent sedation. - Review of Systems ROS unobtainable: due to mental status - Objective Allergies/Adverse Reactions: Allergies Allergy/AdvReac Type Severity Reaction Status Date / Time No Allergy Information Allergy Verified 09/05/19 07:55 Available Visit Medications: Current Medications Acetaminophen (Tylenol Elixir) 650 mg PO Q4H PRN PRN Reason: Headache/Fever/Mild Pain (1-3) Last Admin: 09/06/19 07:42 Dose: 650 mg Acetaminophen/Codeine Phosphate (Tylenol #3) 1 tab PO Q4H PRN PRN Reason: Mild Pain (1-3) Acetaminophen/Codeine Phosphate (Tylenol #3) 2 tab PO Q4H PRN PRN Reason: Moderate Pain (4-6) Last Admin: 09/06/19 15:09 Dose: 2 tab Amiodarone HCl (Cordarone) 200 mg PO TID [facility] Last Admin: 09/06/19 15:09 Dose: 200 mg Carvedilol (Coreg) 3.125 mg PO BID-[facility] Enoxaparin Sodium (Lovenox) 60 mg SC DAILY [facility] Last Admin: 09/06/19 10:38 Dose: 60 mg Famotidine (Pepcid) 20 mg SLOW IVP Q12HR [facility] Last Admin: 09/06/19 10:38 Dose: 20 mg Levetiracetam 500 mg/ Device 100 mls @ 200 mls/hr IVPB BID [facility] Last Admin: 09/06/19 11:17 Dose: 100 mls Norepinephrine Bitartrate (Levophed) 250 mls @ 0 mls/hr IVPB INF [facility]; Protocol Sodium Chloride (Normal Saline 0.9%) 200 mls @ 0 mls/hr IV ONE PRN PRN Reason: SBP < 90 Stop: 09/06/19 17:58 Ceftriaxone Sodium 1 gm/ (Sodium Chloride) 100 mls @ 200 mls/hr IVPB Q24HR [facility] Last Admin: 09/06/19 11:32 Dose: 100 mls Ipratropium [place] (Atrovent) 2.5 ml NEB [id number] PRN PRN Reason: SOB &/or Wheezing Miscellaneous Information (Communication Order-Pharmacy) 1 each FS .COMMUNICATION [facility] Nitroglycerin (Nitrostat) 0.4 mg SL Q5MIN PRN PRN Reason: Chest Pain Sodium Chloride (Flush - Normal Saline) 10 ml IVF Q12HR [facility] Last Admin: 09/06/19 10:38 Dose: 10 ml Sodium Chloride (Flush - Normal Saline) 10 ml IVF PRN PRN PRN Reason: Saline Flush Vital Signs & Weight: Vital Signs Temp Pulse Resp 09/06/19 12:00 99 F 09/06/19 08:00 101.5 F H 22 H 09/06/19 07:30 91 09/06/19 06:00 20 09/06/19 04:00 20 Admit Weight 239 lb 3.225 oz Weight 239 lb 3.225 oz - Physical Exam General: appears well, no apparent distress HEENT: mucus membranes moist, normocephaly Neck: supple neck, midline trachea, no JVD/HJR, no masses, no bruit, no lymphadenopathy, no thromegaly Cardiac: regular rate and rhythm, no murmur, regular rate, regular rhythm Lungs: clear to auscultation, normal breath sounds, normal exam, no wheeze, rales, rhonchi Neuro: cranial nerve 2-12 intact, grossly intact, coordination normal, no lateralizing findings Abdomen: unremarkable, active bowel sounds, soft Extremities: no cyanosis, no clubbing, no edema - Labs Result Diagrams: 09/06/19 12:57 09/06/19 12:57 Troponin/CKMB CK-MB (CK-2) 21.4 ng/mL (0-6.6) H* 09/05/19 17:00 Troponin I 0.189 ng/mL (< 0.028) H 09/05/19 17:00 - Telemetry Sinus rhythms and dysrhythmias: sinus rhythm - Assessment/Plan Assessment/Plan: 1. Ventricular fibrillation arrest with successful resuscitation and defibrillation. 2. Newly found cardiomyopathy, likely nonischemic with LVEF of 20% to 25%. Continue amiodarone. Will transition to PO taper possibly tomorrow if taking eating/drinking. Clearly meets criteria for ICD implant for secondary prevention of sudden cardiac with cardiomyopathy. Discussed R/B/A with family and patient who wish to proceed. Plan for implant tomorrow. Plan for single chamber ICD unless new arrhythmia issues are seen before implant.
[2019-09-06] MEDS: traMADol HCl 50 MG TAB PO PRN ×2 (16:13→22:13)
[2019-09-06] MEDS: Carvedilol 3.125 MG TAB PO SCH (16:13)
[2019-09-06] MEDS: HYDROcodone/Acetaminophen 5/325 mg Tablet PO PRN ×2 (18:49→22:46)
[2019-09-07] MEDS: HYDROcodone/Acetaminophen 5/325 mg Tablet PO PRN ×2 (02:16→06:36)
[2019-09-07 03:25] LABS: #Basophils 0.1 thou/uL (0.0-0.2); #Eosinphils 0.1 thou/uL (0.0-0.7); #Lymphocytes 1.1 thou/uL (1.20-3.40); #Monocytes 1.2 thou/uL (0.11-0.59); #Neutrophils 7.7 thou/uL (1.40-6.50); %Basophils 0.5 % (0.0-1.0); %Eosinophils 0.8 % (0.0-10.0); %Lymphocytes 11.2 % (21.0-51.0); %Monocytes 12.1 % (0.0-10.0); %Neutrophils 75.3 % (42.0-75.0); Hemoglobin 12.2 g/dL (14.0-18.0); Mean Corpuscular HGB CONC 34.8 g/dL (32.0-36.0); Mean Corpuscular Hemoglobin 33.7 pg (27.0-31.0); Mean Corpuscular Volume 96.9 fL (78.0-98.0); Mean Platelet Volume 8.1 fL (7.4-10.4); Platelet Count 165 thou/uL (130-400); RBC Distribution Width 11.6 % (11.5-14.5); Red Blood Cell (RBC) Count 3.63 mill/uL (4.70-6.10); White Blood Cell (WBC) Count 10.2 thou/uL (4.8-10.8)
[2019-09-07 03:44] LABS: Anion Gap 11 mmol/L (10-20); BUN (Urea Nitrogen) 10 mg/dL (8.9-20.6); Calc. Creatinine Clearance 164 mL/min (70-130); Carbon Dioxide 27 mmol/L (22-29); Chloride 106 mmol/L (98-107); Estimated GFR-MDRD Greater than 90; Glucose 108 mg/dL (70-105); Potassium 3.9 mmol/L (3.5-5.1); Sodium 140 mmol/L (136-145)
[2019-09-07] MEDS: traMADol HCl 50 MG TAB PO PRN ×3 (04:11→19:27)
[2019-09-07 05:08] VITALS: BMI 29.9
[2019-09-07] MEDS: Enoxaparin Sodium 60 MG/0.6 ML SYRINGE SC SCH (07:31)
--- NOTE | 2019-09-07 08:20 | RAD ---
PORTABLE CHEST: HISTORY: Respiratory distress. COMPARISON: Prior day's exam. FINDINGS: NG tube has been removed. The left subclavian line is unchanged in position. Heart size is enlarged with mild vascular engorgement. IMPRESSION: Interval removal of endotracheal and NG Tubes; otherwise, stable exam. POS: OFF
--- NOTE | 2019-09-07 08:21 | PRG ---
DATE OF SERVICE: 09/07/2019 SUBJECTIVE: Edwin Abraham, this morning, is awake, alert, responsive. He is no longer confused. OBJECTIVE: VITAL SIGNS: Pulse 84, blood pressure 127/80, saturations 96%, and respirations 25. CHEST: Decreased breath sounds. No wheezing. CARDIAC: Normal S1 and S2. No gallops. ABDOMEN: No masses. LABORATORY DATA: Lytes are normal. White count is normal. IMAGING DATA: X-ray shows cardiomegaly. IMPRESSION: Status post ventricular tachycardia, ventricular fibrillation, cardiopulmonary arrest, prolonged CPR, cardiomyopathy, respiratory failure. PLAN: Continue supportive care. He is scheduled to have an AICD placed in today. We will follow. Switch over to oral antibiotics tomorrow. Job ID: [id number]
[2019-09-07] MEDS: cefTRIAXone\\ROCEPHIN 1 GM in Sodium Chloride 0.9% 100 ML IVPB SCH (08:45)
[2019-09-07] MEDS: Famotidine/PF 20 mg/2ml Vial SLOW IVP SCH ×2 (08:46→20:16)
[2019-09-07] MEDS: Amiodarone 200 MG TAB PO SCH ×3 (08:46→20:16)
[2019-09-07] MEDS: Carvedilol 3.125 MG TAB PO SCH ×2 (08:46→18:41)
--- NOTE | 2019-09-07 10:07 | PDOC.HOSPP ---
- Subjective Encounter Date: 09/07/19 Encounter Time: 10:05 Subjective: Mr. Abraham was seen today in follow-up of non-ischemic cardiomyopathy, and post cardiac arrest due to sudden . He does not have any complaints. He continues to have some amnesia of the previous few days. The soreness in his chest has improved. - Objective Vital Signs & Weight: Vital Signs (12 hours) Temp Pulse Ox 09/07/19 04:00 98.7 F 09/07/19 00:15 96 09/07/19 00:00 98.3 F Weight Admit Weight 239 lb 3.225 oz Weight 246 lb 4.101 oz Most Recent Monitor Data Heart Rate from ECG 82 NIBP 123/79 NIBP BP-Mean 84 Respiration from ECG 23 SpO2 97 I&O: 09/06/19 09/07/19 09/08/19 06:59 06:59 06:59 Intake Total 1508.1 2143 Output Total 947 1965 Balance 561.1 178 Result Diagrams: 09/07/19 03:15 09/07/19 03:15 Hospitalist ROS - Medication Medications: Active Medications Generic Name Dose Route Start Last Admin Trade Name Freq PRN Reason Stop Dose Admin Acetaminophen 650 mg 09/06/19 07:22 09/06/19 07:42 Tylenol Elixir PO 650 mg Q4H PRN Administration Headache/Fever/Mild Pain (1-3) Acetaminophen/Codeine Phosphate 2 tab 09/05/19 17:57 09/06/19 15:09 Tylenol #3 PO 2 tab Q4H PRN Administration Moderate Pain (4-6) Hydrocodone Bitart/Acetaminophen 1 tab 09/06/19 18:25 09/07/19 06:36 [place] 5/325 PO 1 tab Q4H PRN Administration Severe Pain (7-10) Amiodarone HCl 200 mg 09/06/19 15:00 09/07/19 08:46 Cordarone PO 200 mg TID IZABELLA Administration Carvedilol 3.125 mg 09/06/19 17:00 09/07/19 08:46 Coreg PO 3.125 mg BID-WM IZABELLA Administration Enoxaparin Sodium 60 mg 09/06/19 09:00 09/07/19 07:31 Lovenox SC Not Given DAILY IZABELLA Famotidine 20 mg 09/04/19 21:00 09/07/19 08:46 Pepcid SLOW IVP 20 mg Q12HR IZABELLA Administration Ceftriaxone Sodium 1 gm/ 100 mls @ 200 mls/hr 09/06/19 09:00 09/07/19 08:45 Sodium Chloride IVPB 100 mls Q24HR IZABELLA Administration Sodium Chloride 10 ml 09/04/19 21:00 09/07/19 09:07 Flush - Normal Saline IVF 10 ml Q12HR IZABELLA Administration Tramadol HCl 50 mg 09/06/19 15:54 09/07/19 04:11 Ultram PO 50 mg Q6H PRN Administration Breakthrough Pain - Exam Eye: PERRL Heart: RRR, no murmur, no gallops, no rubs, normal peripheral pulses Respiratory: CTAB, no wheezes, no rales, no ronchi, normal chest expansion Gastrointestinal: soft, non-tender, non-distended, normal bowel sounds, no palpable masses Extremities: no cyanosis, no clubbing, no edema Hosp A/P (1) Cardiac arrest Code(s): I46.9 - CARDIAC ARREST, CAUSE UNSPECIFIED Status: Acute (2) Cardiomyopathy Code(s): I42.9 - CARDIOMYOPATHY, UNSPECIFIED Status: Acute (3) Acute respiratory failure with hypoxia Code(s): J96.01 - ACUTE RESPIRATORY FAILURE WITH HYPOXIA Status: Acute - Plan * Non-Ischemic Cardiomyopathy with sudden -plan is for single chamber defibrillator today * Respiratory failure- improved- He will need pain control, and aggressive pulmonary toilet
[2019-09-07] MEDS ORDERED: PROPOFOL 200 MG/20 ML VIAL ONE (10:40)
[2019-09-07] MEDS: Acetaminophen/Codeine 30-300mg Tablet PO PRN (12:46)
[2019-09-07] MEDS ORDERED: Fentanyl 100 MCG/2 ML VIAL ONE (15:43)
[2019-09-07] MEDS ORDERED: Midazolam HCl 2 mg/2 ml Vial ONE (15:44)
[2019-09-07] MEDS ORDERED: Iopamidol 370 76% 50 ML VIAL FS ONE (16:10)
[2019-09-07] MEDS ORDERED: Lidocaine 1% (PF) 30 ML VIAL ONE (16:20)
--- NOTE | 2019-09-07 17:41 | PDOC.CPN ---
- Subjective Date: 09/07/19 Time: 11:00 - Review of Systems Respiratory: denies: shortness of breath Cardiovascular: reports: chest pain, palpitation (tender chest wall after CPR.) . denies: edema Gastrointestinal: denies: nausea, vomiting Musculoskeletal: reports: pain. denies: stiffness, swelling Neurological: denies: numbness, seizure - Objective Allergies/Adverse Reactions: Allergies Allergy/AdvReac Type Severity Reaction Status Date / Time No Known Drug Allergies Allergy Verified 09/07/19 13:44 Visit Medications: Current Medications Acetaminophen (Tylenol Elixir) 650 mg PO Q4H PRN PRN Reason: Headache/Fever/Mild Pain (1-3) Last Admin: 09/06/19 07:42 Dose: 650 mg Acetaminophen/Codeine Phosphate (Tylenol #3) 1 tab PO Q4H PRN PRN Reason: Mild Pain (1-3) Acetaminophen/Codeine Phosphate (Tylenol #3) 2 tab PO Q4H PRN PRN Reason: Moderate Pain (4-6) Last Admin: 09/07/19 12:46 Dose: 2 tab Hydrocodone Bitart/Acetaminophen ([place] 5/325) 1 tab PO Q4H PRN PRN Reason: Severe Pain (7-10) Last Admin: 09/07/19 06:36 Dose: 1 tab Amiodarone HCl (Cordarone) 200 mg PO TID [facility] Last Admin: 09/07/19 14:58 Dose: 200 mg Carvedilol (Coreg) 3.125 mg PO BID-[facility] Last Admin: 09/07/19 08:46 Dose: 3.125 mg Enoxaparin Sodium (Lovenox) 60 mg SC DAILY [facility] Last Admin: 09/07/19 07:31 Dose: Not Given Famotidine (Pepcid) 20 mg SLOW IVP Q12HR [facility] Last Admin: 09/07/19 08:46 Dose: 20 mg Norepinephrine Bitartrate (Levophed) 250 mls @ 0 mls/hr IVPB INF IZABELLA; Protocol Ceftriaxone Sodium 1 gm/ (Sodium Chloride) 100 mls @ 200 mls/hr IVPB Q24HR [facility] Last Admin: 09/07/19 08:45 Dose: 100 mls Ipratropium [place] (Atrovent) 2.5 ml NEB [id number] PRN PRN Reason: SOB &/or Wheezing Last Admin: 09/07/19 13:30 Dose: 2.5 ml Miscellaneous Information (Communication Order-Pharmacy) 1 each FS .COMMUNICATION IZABELLA Nitroglycerin (Nitrostat) 0.4 mg SL Q5MIN PRN PRN Reason: Chest Pain Sodium Chloride (Flush - Normal Saline) 10 ml IVF Q12HR IZABELLA Last Admin: 09/07/19 09:07 Dose: 10 ml Sodium Chloride (Flush - Normal Saline) 10 ml IVF PRN PRN PRN Reason: Saline Flush Tramadol HCl (Ultram) 50 mg PO Q6H PRN PRN Reason: Breakthrough Pain Last Admin: 09/07/19 11:10 Dose: 50 mg Vital Signs & Weight: Vital Signs Temp Pulse Pulse Pulse Resp BP BP 09/07/19 13:30 88 20 09/07/19 12:00 98.8 F 09/07/19 09:40 79 100 125/92 H 132/91 H 09/07/19 08:00 09/07/19 07:00 98.9 F Pulse Ox 09/07/19 13:30 94 L 09/07/19 12:00 09/07/19 09:40 09/07/19 08:00 93 L 09/07/19 07:00 Admit Weight 239 lb 3.225 oz Weight 246 lb 4.101 oz - Quality Measures CV meds: Beta Sami: Yes, ISACC/ARB: No (will start after BP stable.), Statin: No, ASA: Yes - Physical Exam HEENT: normocephaly Neck: supple neck, no JVD/HJR, no lymphadenopathy Cardiac: regular rate and rhythm, no murmur Lungs: clear to auscultation, no wheezes, no rhonchi Neuro: grossly intact, other (still some memory issues and mild confusion.) Abdomen: unremarkable Extremities: no cyanosis, no clubbing, no edema Musculoskeletal: normal range of motion (pain in chest to palpation.) - Labs Result Diagrams: 09/07/19 03:15 09/07/19 03:15 Troponin/CKMB CK-MB (CK-2) 21.4 ng/mL (0-6.6) H* 09/05/19 17:00 Troponin I 0.189 ng/mL (< 0.028) H 09/05/19 17:00 - Telemetry Supraventricular conduction: other (short run 5-6 beats of NSVTACH this AM while he started to walk in CCU.) - Assessment/Plan Assessment/Plan: 1. s/p Cardiac arrest - On Amiodarone , po. %-^ beat run of NSVTACH this AM. For AICD today. 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 this has been identified as being associated with cardiomyopathy. I suspect he may have the same genetic variant. 3. Acute on Chronic systolic HF. Continue Coreg, increase as tolerated. Add cozaar or Entresto. KAREN reviewed * Echo on 09/05/2019 with EF 20-25%, global hypokinesis, mild MR and TR
[2019-09-07] MEDS ORDERED: Ibuprofen 200 MG TAB PO PRN (19:48)
[2019-09-08] MEDS: traMADol HCl 50 MG TAB PO PRN ×2 (04:42→18:04)
[2019-09-08 05:34] LABS: #Eosinphils 0.1 thou/uL (0.0-0.7); #Lymphocytes 0.8 thou/uL (1.20-3.40); #Neutrophils 5.4 thou/uL (1.40-6.50); %Basophils 0.6 % (0.0-1.0); %Eosinophils 1.5 % (0.0-10.0); %Lymphocytes 10.2 % (21.0-51.0); %Monocytes 13.8 % (0.0-10.0); Hemoglobin 11.8 g/dL (14.0-18.0); Mean Corpuscular HGB CONC 34.3 g/dL (32.0-36.0); Mean Corpuscular Hemoglobin 33.2 pg (27.0-31.0); Mean Corpuscular Volume 96.7 fL (78.0-98.0); Platelet Count 158 thou/uL (130-400); RBC Distribution Width 11.3 % (11.5-14.5); Red Blood Cell (RBC) Count 3.57 mill/uL (4.70-6.10); White Blood Cell (WBC) Count 7.3 thou/uL (4.8-10.8)
[2019-09-08 05:58] LABS: Anion Gap 14 mmol/L (10-20); BUN (Urea Nitrogen) 10 mg/dL (8.9-20.6); Calc. Creatinine Clearance 207 mL/min (70-130); Calcium 8.9 mg/dL (7.8-10.44); Carbon Dioxide 25 mmol/L (22-29); Chloride 103 mmol/L (98-107); Estimated GFR-MDRD Greater than 90; Glucose 99 mg/dL (70-105); Potassium 3.8 mmol/L (3.5-5.1); Sodium 138 mmol/L (136-145)
--- NOTE | 2019-09-08 07:33 | RAD ---
EXAM: Portable chest PROVIDED CLINICAL HISTORY: Respiratory insufficiency COMPARISON: None FINDINGS: Interval level of left sided central line. Interval placement of left subclavian cardiac pacing devic e. Additional significant Interval change with respect to the prior examination is not apparent. IMPRESSION: As above.
[2019-09-08] MEDS: Enoxaparin Sodium 60 MG/0.6 ML SYRINGE SC SCH (08:56)
[2019-09-08] MEDS: Famotidine/PF 20 mg/2ml Vial SLOW IVP SCH (08:56)
[2019-09-08] MEDS: Amiodarone 200 MG TAB PO SCH ×3 (08:56→21:15)
[2019-09-08] MEDS: Carvedilol 3.125 MG TAB PO SCH ×2 (08:56→17:56)
[2019-09-08] MEDS: cefTRIAXone\\ROCEPHIN 1 GM in Sodium Chloride 0.9% 100 ML IVPB SCH (09:03)
[2019-09-08] MEDS ORDERED: Potassium Chloride 20 MEQ TAB PO SCH (11:45)
[2019-09-08] MEDS ORDERED: Furosemide 40 MG/4 ML VIAL SLOW IVP SCH (11:45)
--- NOTE | 2019-09-08 11:51 | PDOC.HOSPP ---
- Subjective Encounter Date: 09/08/19 Encounter Time: 11:00 Subjective: Jefe is s/p cardiac arrest. States he had some warning symptoms on Tuesday where his face turned white and sweaty, but EMS told him EKG was fine. [place] airport [place] cardiac arrest. He was found to be in Vtach, s/p AICD 09/07. Patient states he is not starting to remember things for the first time. Patient is doing well, feels great. He ambulated around the hallway without problem. He reports some rib pain when he coughs, he believes this is from CPR. He is not bringing up phlegm. Denies shortness of breath. Patient wants to be discharged and go home. However oxygen saturation on finger on room air was 87%. Patient states he works in construction Per she feels patient is having some short term memory loss and is asking same questions repeatedly but not as bad as yesterday. - Objective Vital Signs & Weight: Vital Signs (12 hours) Temp Pulse Pulse BP BP Pulse Ox Pulse Ox 09/08/19 09:06 91 86 151/98 H 119/85 94 L 09/08/19 07:22 96 09/08/19 07:00 98.2 F 09/08/19 04:00 98.6 F 09/08/19 00:00 98.3 F Pulse Ox 09/08/19 09:06 96 09/08/19 07:22 09/08/19 07:00 09/08/19 04:00 09/08/19 00:00 Weight Admit Weight 239 lb 3.225 oz Weight 246 lb 4.101 oz Most Recent Monitor Data Heart Rate from ECG 84 NIBP 137/97 NIBP BP-Mean 108 Respiration from ECG 18 SpO2 91 I&O: 09/07/19 09/08/19 09/09/19 06:59 06:59 06:59 Intake Total 2143 1142 360 Output Total 1965 1400 580 Balance 178 -258 -220 Result Diagrams: 09/08/19 05:10 09/08/19 05:10 Hospitalist ROS - Review of Systems Constitutional: denies: fever, chills - Medication Medications: Active Medications Generic Name Dose Route Start Last Admin Trade Name Freq PRN Reason Stop Dose Admin Acetaminophen 650 mg 09/06/19 07:22 09/06/19 07:42 Tylenol Elixir PO 650 mg Q4H PRN Administration Headache/Fever/Mild Pain (1-3) Acetaminophen/Codeine Phosphate 2 tab 09/05/19 17:57 09/07/19 12:46 Tylenol #3 PO 2 tab Q4H PRN Administration Moderate Pain (4-6) Amiodarone HCl 200 mg 09/06/19 15:00 09/08/19 08:56 Cordarone PO 200 mg TID IZABELLA Administration Carvedilol 3.125 mg 09/06/19 17:00 09/08/19 08:56 Coreg PO 3.125 mg BID-WM IZABELLA Administration Enoxaparin Sodium 60 mg 09/06/19 09:00 09/08/19 08:56 Lovenox SC 60 mg DAILY IZABELLA Administration Ibuprofen 400 mg 09/07/19 19:48 09/07/19 20:12 Motrin PO 400 mg Q4H PRN Administration Fever/Mild Pain Ipratropium [place] 2.5 ml 09/06/19 09:28 09/07/19 13:30 Atrovent NEB 2.5 ml [id number] PRN Administration SOB &/or Wheezing Sacubitril/Valsartan 1 tab 09/07/19 21:00 09/08/19 09:55 Entresto 24 Mg-26 Mg Tablet PO 1 tab BID IZABELLA Administration Sodium Chloride 10 ml 09/04/19 21:00 09/08/19 08:57 Flush - Normal Saline IVF 10 ml Q12HR IZABELLA Administration Tramadol HCl 50 mg 09/06/19 15:54 09/08/19 04:42 Ultram PO 50 mg Q6H PRN Administration Breakthrough Pain - Exam General Appearance: NAD, awake alert Eye: PERRL, anicteric sclera ENT: normocephalic atraumatic, no oropharyngeal lesions Neck: supple, symmetric, no thyromegaly Heart: RRR, no murmur, no gallops, no rubs Respiratory: CTAB, no wheezes, no rales, no ronchi Gastrointestinal: soft, non-tender, non-distended Extremities: no cyanosis, no clubbing, no edema Skin: normal turgor, no lesions, no rashes Skin - other findings: Pacemaker in place on left side of chest, no signs of infection Neurological: cranial nerve grossly intact, normal sensation to touch, no focal deficits, no new deficit Hosp A/P - Plan ECHO: mild MR, mild TR, global hypokinesis with EF 20% Cardiac cath : normal This is 39 year old male who presented with out of hospital cardiac arrest, s/p AICD placement 09/07 Acute hypoxic respiratory failure s/p cardiac arrest s/p AICD placement - ECHO showed EF 20%, cardiac cath was normal. Last troponin 0.189, patient denies chest pain - continue amiodarone, coreg, entresto - on 2L oxygen saturating 95%, room air 87%. Will give one dose of 40 mg IV lasix per cardiology. Chest X ray today normal - resume diet - transfer to floor with telemetry - s/p 3 days IV ceftriaxone, discontinue since no evidence of pneumonia Anemia - Hb 11.8, stable, continue to monitor Short term memory impairment - likely ICU delirium - check B12 level Code status: full code
--- NOTE | 2019-09-08 11:56 | PRG ---
DATE OF SERVICE: 09/08/2019 SERVICE: Pulmonary medicine. INTERVAL HISTORY: The patient is doing outstanding from respiratory standpoint. He still requiring a little bit of oxygen. Denies any chest discomfort, nausea, or vomiting. He has been up walking the hallways without difficulty. He got a pacemaker placed and this was without incident. Otherwise, he had an uneventful evening. PHYSICAL EXAMINATION: VITAL SIGNS: Afebrile, pulse 86, blood pressure 135/93, respirations 22, saturation 96%, currently on 2 L nasal cannula. GENERAL: The patient is awake and alert, in no apparent distress. LUNGS: Decent air entry. Dependent crackles are present. There is decreased air entry at the bases with dullness to percussion. HEART: Normal rate. Regular. ABDOMEN: Soft, nontender, and nondistended. Bowel sounds are positive. MUSCULOSKELETAL: No cyanosis or clubbing. There is no pitting in the bilateral lower extremities. NEUROLOGIC: Grossly nonfocal. LABORATORY DATA: WBC 7.3, hemoglobin 11.8 and stable, platelets 158,000. Basic metabolic profile is completely unremarkable except for potassium of 3.8. Urinalysis is negative. Urine drug screen is positive for cocaine. Blood cultures x4 are unremarkable. IMAGIN. Chest x-ray demonstrates enlarged cardiac silhouette. Pulmonary vascular congestion is evident. I do not see any obvious large pleural effusion, though there may be some pleural parenchymal density on the left. Echocardiogram demonstrates a 20% to 25% ejection fraction with global hypokinesis. ASSESSMENT: 1. Acute hypoxic respiratory failure, improving. 2. Acute systolic heart failure. 3. Ventricular fibrillation arrest, status post pacemaker placement. DISCUSSION AND PLAN: We will give the patient a dose of Lasix and potassium. He can be transitioned to the floor. We will wean oxygen through time as tolerated. Pulmonary/Critical Care will continue to follow along for the time being. Job ID: [id number] [facility]
--- NOTE | 2019-09-08 12:53 | PDOC.CPN ---
- Subjective Date: 09/08/19 Time: 12:50 Interval history: He had his AICD placed yesterday. Area little sore. No syncope No more VT, no therapies. He really wants to go home. Hao in the room states she is having to repeat a lot of things, and he keeps asking the same questions over and over again. Still needing Oxygen NC at 4L. - Review of Systems General: denies: fever/chills, weight/appetite/sleep changes, night sweats, fatigue Respiratory: denies: cough, congestion, shortness of breath, exercise intolerance Cardiovascular: denies: chest pain, palpitation, edema, paroxysmal nocturnal dyspnea, orthopnea Gastrointestinal: denies: nausea, vomiting, diarrhea, constipation, abd pain, GI bleeding Musculoskeletal: denies: pain, tenderness, stiffness, swelling, arthritis/ arthralgias Neurological: denies: numbness, syncope, seizure, weakness - Objective Allergies/Adverse Reactions: Allergies Allergy/AdvReac Type Severity Reaction Status Date / Time No Known Drug Allergies Allergy Verified 09/07/19 13:44 Visit Medications: Current Medications Acetaminophen (Tylenol Elixir) 650 mg PO Q4H PRN PRN Reason: Headache/Fever/Mild Pain (1-3) Last Admin: 09/06/19 07:42 Dose: 650 mg Acetaminophen/Codeine Phosphate (Tylenol #3) 1 tab PO Q4H PRN PRN Reason: Mild Pain (1-3) Acetaminophen/Codeine Phosphate (Tylenol #3) 2 tab PO Q4H PRN PRN Reason: Moderate Pain (4-6) Last Admin: 09/07/19 12:46 Dose: 2 tab Amiodarone HCl (Cordarone) 200 mg PO TID [facility] Last Admin: 09/08/19 08:56 Dose: 200 mg Carvedilol (Coreg) 3.125 mg PO BID-WM [facility] Last Admin: 09/08/19 08:56 Dose: 3.125 mg Cefdinir (Omnicef) 300 mg PO BID [facility] Stop: 09/12/19 21:01 Enoxaparin Sodium (Lovenox) 60 mg SC DAILY [facility] Last Admin: 09/08/19 08:56 Dose: 60 mg Furosemide (Lasix) 40 mg SLOW IVP NOW [facility] Stop: 09/08/19 13:45 Ibuprofen (Motrin) 400 mg PO Q4H PRN PRN Reason: Fever/Mild Pain Last Admin: 09/07/19 20:12 Dose: 400 mg Ipratropium [place] (Atrovent) 2.5 ml NEB [id number] PRN PRN Reason: SOB &/or Wheezing Last Admin: 09/07/19 13:30 Dose: 2.5 ml Miscellaneous Information (Communication Order-Pharmacy) 1 each FS .COMMUNICATION IZABELLA Nitroglycerin (Nitrostat) 0.4 mg SL Q5MIN PRN PRN Reason: Chest Pain Potassium Chloride (K-Dur) 40 meq PO NOW [facility] Stop: 09/08/19 13:45 Sacubitril/Valsartan (Entresto 24 Mg-26 Mg Tablet) 1 tab PO BID [facility] Last Admin: 09/08/19 09:55 Dose: 1 tab Sodium Chloride (Flush - Normal Saline) 10 ml IVF Q12HR IZABELLA Last Admin: 09/08/19 08:57 Dose: 10 ml Sodium Chloride (Flush - Normal Saline) 10 ml IVF PRN PRN PRN Reason: Saline Flush Tramadol HCl (Ultram) 50 mg PO Q6H PRN PRN Reason: Breakthrough Pain Last Admin: 09/08/19 04:42 Dose: 50 mg Vital Signs & Weight: Vital Signs Temp Pulse Pulse BP BP Pulse Ox Pulse Ox 09/08/19 12:00 98.4 F 09/08/19 09:06 91 86 151/98 H 119/85 94 L 09/08/19 07:22 96 09/08/19 07:00 98.2 F 09/08/19 04:00 98.6 F Pulse Ox 09/08/19 12:00 09/08/19 09:06 96 09/08/19 07:22 09/08/19 07:00 09/08/19 04:00 Admit Weight 239 lb 3.225 oz Weight 246 lb 4.101 oz - Quality Measures CV meds: Beta Sami: Yes, ISACC/ARB: No (will start after BP stable.), Statin: No, ASA: Yes - Physical Exam General: no apparent distress HEENT: mucus membranes moist, normocephaly Neck: supple neck, midline trachea Cardiac: regular rate and rhythm, no murmur Lungs: clear to auscultation Neuro: grossly intact, other (Problem with short term memory.) Abdomen: active bowel sounds, soft, non-tender Extremities: other: (Trace edema) Skin: clear Musculoskeletal: no pain - Labs Result Diagrams: 09/08/19 05:10 09/08/19 05:10 Troponin/CKMB CK-MB (CK-2) 21.4 ng/mL (0-6.6) H* 09/05/19 17:00 Troponin I 0.189 ng/mL (< 0.028) H 09/05/19 17:00 - Telemetry Sinus rhythms and dysrhythmias: sinus rhythm - Assessment/Plan Assessment/Plan: 1. S/P Cardiac arrest 2. Familial Cardiomyopathy 3. Acute on Chronic systolic HF. 4. NS VT 5. S/P AICD placement. 6. Mild cognitive dysfunction. PLAN: - Will give one dose IV lasix today. - Stable for transfer to the telemetry floor. - Continue guideline directed therapy. - Continue to try to wean oxygen supplementation. - Will up titrate Coreg for better BP control. - Will follow. - Critical Care Time Critical care time (mins): 30
[2019-09-08] MEDS: Acetaminophen 650 MG/20.3 ML UDCUP PO PRN (18:02)
[2019-09-08] MEDS: Cefdinir 300 MG CAP PO SCH (21:15)
[2019-09-09] MEDS: Acetaminophen/Codeine 30-300mg Tablet PO PRN (05:59)
[2019-09-09] MEDS: Cefdinir 300 MG CAP PO SCH (08:37)
[2019-09-09] MEDS: Enoxaparin Sodium 60 MG/0.6 ML SYRINGE SC SCH (08:37)
[2019-09-09] MEDS: Amiodarone 200 MG TAB PO SCH ×2 (08:38→14:34)
[2019-09-09] MEDS: Carvedilol 3.125 MG TAB PO SCH (08:38)
[2019-09-09 12:34] VITALS: BP 128/80; TEMP 98.4
--- NOTE | 2019-09-09 15:44 | DIS ---
DATE OF ADMISSION: 09/04/2019 DATE OF DISCHARGE: 09/09/2019 CONSULTATIONS: Pulmonary Critical Care with Dr. Cecil Gonzales, Cardiology with Dr. Wilson, and Dr. Rober Blair with Electrophysiology. PROCEDURES: Cardiac cath on 09/04, AICD placement on 09/07. BRIEF HISTORY OF PRESENT ILLNESS: This is a 39-year-old gentleman with no known past medical history, who presented [place] at the airport. The patient states that the day prior, he was feeling dizzy and lightheaded and states that his face was flushed. He had called EMS and supposedly they did an EKG and did not find anything. The next day he had gone to the airport and had cardiac arrest at the airport. The patient had ROSC after several rounds of epinephrine and CPR. The patient was placed on hypothermic protocol and was admitted to the cardiovascular ICU. Acute hypoxic respiratory failure, status post cardiac arrest, status post AICD placement/ Vtach/Acute systolic heart failure: The patient was initially admitted to the ICU and was intubated. He had Cardiology consultation on the . He underwent a cardiac cath 09/04 which was normal. The patient then had an echocardiogram done , which showed an ejection fraction of 20% to 25% with global hypokinesis. It was thought that the patient may have a genetic cardiomyopathy since the patient's father had similar problem. The patient had a CTA of his chest, which ruled out a dissection and chest X ray was normal. The patient had a CT scan of his brain , which showed no acute abnormality. He was extubated on 09/07. He underwent AICD placement on . EP was consulted and the patient was started on amiodarone 200 mg three times a day and coreg. Entresto, and Lasix 20 mg daily was added per cardiology. The patient was treated empirically for possible pneumonia with ceftriaxone. He was transitioned to cefdinir 300 mg twice daily, which the patient will take for 4 more days to complete a 7 day course of antibiotics. He was weaned off oxygen on 09/09 and ambulated around the hallway without desaturation. The patient will be discharged with lidocaine patch for chest wall pain from his CPR. He will be given instructions on how to take care of his AICD and pacemaker on discharge. He should follow up with his PCP in a week and Dr. Wilson in 2 to 4 weeks. On day of discharge the patient ambulated around the hallway Anemia: The patient has a hemoglobin of 11.8. He had a vitamin B12 level, which was 684 and a folate level of 12.4, which was unremarkable. The patient can follow up with his PCP in a week and have his anemia rechecked. He should consider an outpatient colonoscopy. Short-term memory impairment: The patient was noted to repeat the same sentence multiple times according to the . This seems to have gotten better today and the patient's mental status seems normal. This is likely secondary to delirium. His B12 level was normal. This can be followed up further as an outpatient. DISCHARGE PHYSICAL EXAMINATION: VITAL SIGNS: Temperature 98.4, heart rate 82, respiratory rate 18, O2 saturation 95% on room air, blood pressure 128/80. GENERAL: The patient is alert, awake, and oriented x3. CVS: Regular rate and rhythm with no murmurs, rubs, or gallops. LUNGS: Clear to auscultation bilaterally. ABDOMEN: Positive bowel sounds, soft, nontender, nondistended. EXTREMITIES: No edema. PERTINENT LABORATORY DATA: The patient has a hemoglobin of 11.5 and hematocrit of 34.5. BMP is unremarkable. Vitamin B12 and folate are normal. TSH was slightly elevated at 18. PERTINENT IMAGING: Chest x-ray on 09/04: No acute disease. CT dissection on 09/04: No PE or aortic dissection. CT brain on 09/04: No acute disease. Chest x-ray on 09/04: No consolidation mass or pleural effusion. Chest x-ray on 09/05: No acute disease. Abdominal x-ray on 09/05: Left nephrolithiasis. Nonspecific bowel gas pattern. Chest x-ray on 09/06: Interval placement of NG tube, no acute disease. Chest x-ray on 09/07: Interval removal of endotracheal and NG tubes. Chest X ray 09/08: No acute disease of the chest x-ray. Echocardiogram result on 09/04: Shows EF of 20% to 25%. Global hypokinesis, mild MR, mild TR. DISCHARGE CONDITION: Stable. DISCHARGE ACTIVITY: As tolerated. The patient is not to lift his left arm above his shoulder and avoid strenuous exercise. He can go for walks daily. The patient to refer to pacemaker and AICD instructions for further information. DIET: Heart-healthy diet. The patient was advised to not drink more than 2 L of fluid a day. DISCHARGE MEDICATIONS: 1. Amiodarone 200 mg p.o. t.i.d. 2. Coreg 3.125 mg p.o. b.i.d. 3. Cefdinir 300 mg p.o. b.i.d. 4. Entresto 24 mg-26 mg one tablet p.o. b.i.d. 5. Nitroglycerin 0.4 mg sublingual tablet q.5 minutes p.r.n. 6. Lidocaine patch one topical daily. 7. Furosemide 20 mg p.o. daily. DISCHARGE INSTRUCTIONS: The patient is to follow up with PCP in a week and Dr. Wilson in 2 to 4 weeks. He should have a 2 L fluid restriction. Job ID: [id number] [facility]
== END 2019-09-09 15:19 | disposition home or self-care (01) | DRG 222 ==
LOC: EDBD 15:52 → ERS 15:52 → EDBD 19:23 → CCU 19:23 → 2NO 09-08 20:04
PROVIDERS: ADMIT Internal Medicine; ATTEND Internal Medicine
PROC: 4A023N7 Measurement of Cardiac Sampling and Pressure, Left Heart, Percutaneous Approach (ICD-10-PCS; principal; 2019-09-05)
PROC: B2111ZZ Fluoroscopy of Multiple Coronary Arteries using Low Osmolar Contrast (ICD-10-PCS; 2019-09-05)
PROC: B2151ZZ Fluoroscopy of Left Heart using Low Osmolar Contrast (ICD-10-PCS; 2019-09-05)
PROC: 0JH608Z Insertion of Defibrillator Generator into Chest Subcutaneous Tissue and Fascia, Open Approach (ICD-10-PCS; 2019-09-07)
PROC: 02HK3KZ Insertion of Defibrillator Lead into Right Ventricle, Percutaneous Approach (ICD-10-PCS; 2019-09-07)
PROC: 5A12012 Performance of Cardiac Output, Single, Manual (ICD-10-PCS; 2019-09-07)
DX: I11.0 Hypertensive heart disease with heart failure (principal); I50.21 Acute systolic (congestive) heart failure; J96.01 Acute respiratory failure with hypoxia; I46.2 Cardiac arrest due to underlying cardiac condition; J18.9 Pneumonia, unspecified organism; I47.2 Ventricular tachycardia; D64.9 Anemia, unspecified; G31.84 Mild cognitive impairment of uncertain or unknown etiology; I25.10 Atherosclerotic heart disease of native coronary artery without angina pectoris; I42.8 Other cardiomyopathies
CPT/HCPCS: 31500; 33249; 36005; 36415; 36416; 36556; 51702; 70450; 71045; 71275; 72191; 74018; 74175; 75820; 80048; 80053; 80306; 80307; 81003; 81015; 82140; 82550; 82553; 82607; 82746; 82805; 83605; 83690; 83735; 83880; 84100; 84146; 84443; 84484; 85025; 85610; 85730; 87040; 92950; 93005; 93306; 93458; 93798; 94002; 94003; 94640; 96365; 96366; 96368; 96375; C1769; C1777; C1786; J0282; J0690; J0696; J1644; J1650; J1940; J1953; J2001; J2060; J2250; J2704; J3010; J3490; J7070; Q9967; S0028

== ENCOUNTER 2019-11-18 21:12 | Observation (INO) | payer BC ==
[2019-11-18 22:04] LABS: #Basophils 0.1 thou/uL (0.0-0.2); #Eosinphils 0.2 thou/uL (0.0-0.7); #Lymphocytes 1.9 thou/uL (1.20-3.40); #Monocytes 0.7 thou/uL (0.11-0.59); #Neutrophils 3.7 thou/uL (1.40-6.50); %Basophils 1.1 % (0.0-1.0); %Eosinophils 2.7 % (0.0-10.0); %Lymphocytes 29.1 % (21.0-51.0); %Monocytes 10.6 % (0.0-10.0); %Neutrophils 56.5 % (42.0-75.0); Hemoglobin 14.1 g/dL (14.0-18.0); Mean Corpuscular HGB CONC 34.7 g/dL (32.0-36.0); Mean Corpuscular Hemoglobin 32.6 pg (27.0-31.0); Mean Platelet Volume 8.2 fL (7.4-10.4); Platelet Count 175 thou/uL (130-400); Red Blood Cell (RBC) Count 4.34 mill/uL (4.70-6.10); White Blood Cell (WBC) Count 6.6 thou/uL (4.8-10.8)
--- NOTE | 2019-11-18 22:14 | RAD ---
RADIOGRAPH CHEST 1 VIEW: DATE: 11/18/2019 HISTORY: 39-year-old male with acute chest pain FINDINGS: There are no airspace densities, pulmonary edema, pneumothorax, or cardiomegaly. The lateral costophr enic angles are sharp. Left subclavian single lead AICD. IMPRESSION: 1. No acute cardiopulmonary findings. 2. Automatic implantable cardioverter-defibrillator.
[2019-11-18 22:25] LABS: ALT (SGPT) 21 U/L (8-55); AST (SGOT) 21 U/L (5-34); Albumin 4.2 g/dL (3.5-5.0); Alkaline Phosphatase 89 U/L (40-110); Anion Gap 13 mmol/L (10-20); BUN (Urea Nitrogen) 16 mg/dL (8.9-20.6); Bilirubin, Total 0.5 mg/dL (0.2-1.2); Calc. Creatinine Clearance 0 mL/min (70-130); Calcium 9.3 mg/dL (7.8-10.44); Carbon Dioxide 27 mmol/L (22-29); Chloride 101 mmol/L (98-107); Estimated GFR-MDRD 85; Globulin 2.8 g/dL (2.4-3.5); Glucose 111 mg/dL (70-105); Potassium 3.8 mmol/L (3.5-5.1); Sodium 137 mmol/L (136-145)
[2019-11-18 22:46] LABS: CKMB 4.4 ng/mL (0-6.6)
[2019-11-18] MEDS ORDERED: Aspirin Chewable 81 MG TAB ONE (22:57)
--- NOTE | 2019-11-18 23:25 | CT ---
CT BRAIN NONCONTRAST: DATE: 11/18/2019 HISTORY: 39-year-old male with vertigo, lightheadedness, and nausea FINDINGS: There is no evidence of acute intra-axial or extra-axial hemorrhage. There is no midline shift or any other mass effect. There is no extra-axial fluid collection. There is no evidence of obstructive hydrocephalus. Calvarium is intact. IMPRESSION: No acute intracranial findings.
--- NOTE | 2019-11-18 23:28 | HP ---
PRIMARY CARE PROVIDER: Krzysztof Mcconnell MD CHIEF COMPLAINT: Lightheadedness. HISTORY OF PRESENT ILLNESS: Mr. Abraham is a pleasant 39-year-old gentleman, who was seen at [facility] on November 18, 2019. He was hospitalized at this facility from September 04, 2019 to September 09, 2019, for acute hypoxic respiratory failure, status post cardiac arrest. He underwent AICD placement for ventricular tachycardia. He reports that since then he has had a few episodes of lightheadedness, usually while standing up that lasts 1 to 2 seconds. He denies any syncopal episodes. He denies any falls. He started having them again last night, and these episodes lasted on and off throughout the day. He presented to the emergency room because of those episodes. He denies any shock from the defibrillator. He also reports feeling nauseated. PAST MEDICAL HISTORY: Nonischemic cardiomyopathy, ventricular tachycardia. PAST SURGICAL HISTORY: Defibrillator placement. SOCIAL HISTORY: Occasional alcohol use, no tobacco use or recreational drug use. ALLERGIES: NO KNOWN DRUG ALLERGIES. CURRENT MEDICATIONS: 1. Coreg 6.25 mg 2 times a day. 2. Entresto 49/51 mg daily. 3. Lasix 10 mg daily. PHYSICAL EXAMINATION: GENERAL: On examination, Mr. Abraham is awake and alert, not in acute distress. VITAL SIGNS: Blood pressure is 130/90, pulse 75, respiratory rate 15, and oxygen saturation 97% on room air. He is afebrile. EYES: No scleral icterus, no conjunctival pallor. ENT: Moist mucosal membranes. No oropharyngeal erythema or exudates. NECK: Supple, nontender, trachea is midline. RESPIRATORY: Accessory muscles of breathing are not active. Chest wall movements are symmetric bilaterally. Lungs are clear to auscultation without wheeze, rhonchi, or crepitations. CARDIOVASCULAR: S1 and S2 are heard, regular. Peripheral pulses palpable. ABDOMEN: Soft, nontender, bowel sounds are heard. NEUROLOGIC: Cranial nerves 2 through 12 are intact. MUSCULOSKELETAL: Power is 5/5 in all 4 extremities. SKIN: No rashes or subcutaneous nodules. LYMPHATIC: No cervical lymphadenopathy. PSYCHIATRIC: Normal mood, normal affect, the patient is oriented to person, place, and time. LABORATORY DATA: Mr. Abraham's labs and investigations were reviewed. EKG shows normal sinus rhythm, T-wave flattening in the inferolateral leads. He also has occasional premature ventricular complexes. Chest x-ray does not show any pulmonary infiltrates. He has an unremarkable CBC and an unremarkable comprehensive metabolic profile. BNP is normal. Troponin I is indeterminate at 0.041. ASSESSMENT AND PLAN: Mr. Abraham is a pleasant 39-year-old gentleman, who was seen at [facility] on November 18, 2019. His problem list includes: 1. Lightheadedness: He is presenting with lightheadedness of unknown etiology. His ICD has been interrogated and he reportedly did not have any arrhythmias. I will obtain a noncontrast CT scan of the brain to rule out any intracranial etiology. He will be monitored on telemetry overnight for any potential arrhythmias. 2. Elevated troponin: He had cardiac catheterization in August 2019 and was found to have normal coronaries. Elevated troponin I, most likely secondary to nonischemic cardiomyopathy, we will trend troponins. Many thanks for allowing me to participate in your patient's care. Please feel free to contact me with any questions or concerns. LEVEL OF RISK: Moderate. LEVEL OF COMPLEXITY: Moderate. Job ID: [id number]
[2019-11-19 01:04] LABS: Troponin I 0.025 ng/mL (< 0.028)
[2019-11-19 01:40] VITALS: BMI 32.3
[2019-11-19 05:23] VITALS: TEMP 97.6
[2019-11-19 05:31] LABS: Troponin I 0.027 ng/mL (< 0.028)
[2019-11-19 08:11] VITALS: BP 126/84
[2019-11-19 10:50] LABS: Free T4 (Free Thyroxine) 0.79 ng/dL (0.70-1.48)
--- NOTE | 2019-11-19 18:27 | DIS ---
DATE OF ADMISSION: 11/19/2019 DATE OF DISCHARGE: 11/19/2019 CONSULTATIONS: NONE PROCEDURES: NONE DISCHARGE DIAGNOSES: Lightheadedness/fuzziness with unclear etiology, elevated troponin, hypothyroidism on lab test, history of ventricular tachycardia with cardiac arrest, chronic systolic heart failure. BRIEF HISTORY OF PRESENT ILLNESS: This is a 39-year-old male with past medical history of a cardiac arrest in August 2019, ventricular tachycardia, status post ICD placement, chronic systolic heart failure, who presented to the emergency room with a few episodes of head fuzziness. The patient had reported that while he was ambulating, he felt a few episodes of blood rushing towards his head and his head felt fuzzy. He denied any chest pain, palpitations. He denied any shocks. He presented to the emergency room for further evaluation. EKG showed normal sinus rhythm with T-wave flattening in the inferior leads and occasional premature PVCs. CBC and CMP were unremarkable. Troponin I in the ER was 0.041. Chest x-ray was unremarkable and CT head was normal. The patient was admitted for further workup given his recent cardiac arrest in 08/2019. HOSPITAL COURSE: Dizziness/lightheadedness: The patient had orthostatics checked, which were negative. Troponins x2 were negative. BMP was negative. There were no further events on telemetry. The patient ambulated around the hallway and had no further episodes of dizziness or lightheadedness. His ICD was interrogated and showed no arrhythmias. The patient states that he had a repeat echocardiogram done in September, which showed EF of 35-40%. Upon calling patient's bowl topper in [place], he was supposed to be taking spironolactone 25 daily, amiodarone 200 mg daily, Coreg 6.25 p.o. b.i.d., Entresto 24/26 mg and Lasix 20 mg p.o. daily. The patient states that he ran out of his amiodarone on Tuesday. He also states that he stopped taking spironolactone 2 weeks ago because he got and did not want the side effects of gynecomastia and decreased libido. The patient was advised to continue to take these medications to avoid worsening of his heart failure. He was scheduled for an appointment with his bowl topper Dr. Gonzales on December 04 at 10 a.m. The patient was given new prescriptions for spironolactone and amiodarone and he states that he has other medications at home. TSH was checked, which was noted to be 14, however, free T4 was normal. This should be rechecked in a few months to assess for amiodarone induced hypothyroidism. DISCHARGE PHYSICAL EXAMINATION: VITAL SIGNS: Temperature 97.6, heart rate 64, respiratory rate 16, O2 saturation 99% on room air. Orthostatic BP show blood pressure 127/90 sitting, 126/86 standing, 126/84 supine. GENERAL: The patient is alert, awake, oriented x3. CVS: Regular rate and rhythm with no murmurs, rubs, or gallops. LUNGS: Clear to auscultation bilaterally. ABDOMEN: Positive bowel sounds, soft, nontender, nondistended. EXTREMITIES: No edema. HEENT: The patient has no thyromegaly. There is no lymphadenopathy. PERTINENT LABORATORY DATA: CBC on 11/18: Unremarkable. BMP on 11/18: Unremarkable. LFTs: AST 21, ALT 21, ALP 89. Troponin I: 0.041, 0.025, 0.027. BNP: 82.8. Free T4:. 0.79. TSH: 14.0201. PERTINENT IMAGING: Chest x-ray on 11/18: Shows no acute cardiopulmonary findings. CT brain 11/18: Shows no acute disease. DISCHARGE INSTRUCTIONS: The patient should follow up with his PCP in a week. He should follow up with Dr. Cabrera, his bowl topper in [place] on December 04 at 10 a.m. He should start taking amiodarone 200 mg daily, spironolactone 25 mg daily , furosemide 20 mg daily, Entresto 24-26 daily, Coreg 6.125 mg daily. He should have his thyroid function tests repeated in a few months. DISCHARGE MEDICATIONS: 1. Amiodarone 200 mg p.o. daily. 2. Coreg 6.125 mg p.o. b.i.d. 3. Furosemide 20 mg p.o. daily. 4. Entresto 24 mg-26, one tablet p.o. b.i.d. 5. Spironolactone 25 mg p.o. daily. Job ID: [id number] [facility]
[2019-11-20] MEDS ORDERED: Amiodarone 200 MG TAB PO SCH (09:00)
== END 2019-11-19 11:39 | disposition home or self-care (01) ==
LOC: ERS 21:12 → 2SW 11-19 00:37
PROVIDERS: ADMIT Internal Medicine; ATTEND Internal Medicine
DX: R42 Dizziness and giddiness (principal); R79.89 Other specified abnormal findings of blood chemistry; I42.8 Other cardiomyopathies; I47.2 Ventricular tachycardia; E03.9 Hypothyroidism, unspecified; I50.22 Chronic systolic (congestive) heart failure; Z86.74 Personal history of sudden cardiac arrest; Z79.899 Other long term (current) drug therapy; Z95.810 Presence of automatic (implantable) cardiac defibrillator
CPT/HCPCS: 36415; 70450; 71045; 80053; 82553; 83880; 84439; 84443; 84484; 85025; 93005; 94760; G0378

== ENCOUNTER 2020-03-03 08:02 | Outpatient (CLI) | payer BC ==
--- NOTE | 2020-03-03 08:21 | ULT ---
Renal sonogram HISTORY: Kidney stone. COMPARISON: CT abdomen 09/04/2019. FINDINGS: Right kidney is 10.9 cm in length and the left is 10.7 cm. No evidence of mass or hydroneph rosis. Calcification of the superior pole left kidney on prior CT is not visualized on today's exam. Urinary bladder is incompletely distended. IMPRESSION : No abnormalities are demonstrated.
== END 2020-03-03 08:03 | disposition home or self-care (01) ==
LOC: BICULT 08:02
PROVIDERS: ATTEND Urology
DX: N20.1 Calculus of ureter (principal)
CPT/HCPCS: 76770

== ENCOUNTER 2020-05-30 09:29 | Outpatient (CLI) | payer BC ==
--- NOTE | 2020-05-30 10:06 | ULT ---
Exam: Bilateral renal ultrasound HISTORY: Ureteral calculus COMPARISON: 03/03/2020 FINDINGS: Right kidney: Normal cortical echotexture. No hydronephrosis. Right kidney measurements: 10.1 x 6.5 x 7.5 cm. Left kidney: Normal cortical echotexture. No hydronephrosis. Left kidney measurements 11.0 x 4.7 x 5.6 cm. Urinary bladder: Normal mucosa. Prevoid volume is 111 ml. IMPRESSION: No hydronephrosis.
--- NOTE | 2020-05-30 10:20 | RAD ---
Exam: 1 view abdomen COMPARISON: 09/05/2019 Correlation: CT 02/19/2020 HISTORY: Evaluate for renal calculi FINDINGS: Nonspecific bowel gas pattern. No suspicious densities in the abdomen. Density in the left hemipelvis is presumed to be phleboliths No pneumoperitoneum on supine projection No osseous abnormalities IMPRESSION: No radiographic evidence of nephrolithiasis or ureterolithiasis. No radiographic evidence of a distal left ureteral calculus noted on CT for 02/19/2020.
== END 2020-05-30 09:30 | disposition home or self-care (01) ==
LOC: SCSULT 09:29
PROVIDERS: ATTEND Urology
DX: N20.1 Calculus of ureter (principal)
CPT/HCPCS: 74018; 76770

== ENCOUNTER 2022-11-25 08:15 | Outpatient (CLI) | payer BC | END 2022-11-25 08:16 | disposition home or self-care (01) | LOC: TBSIIMAG 08:15 | PROVIDERS: ATTEND Physician Assistant | DX: S32.019A Unspecified fracture of first lumbar vertebra, initial encounter for closed fracture (principal); M43.8X6 Other specified deforming dorsopathies, lumbar region | CPT/HCPCS: 72100 ==

== ENCOUNTER 2025-08-23 08:55 | Outpatient (CLI) | payer BC | END 2025-08-23 08:56 | disposition home or self-care (01) | LOC: SCSBT 08:55 | PROVIDERS: ATTEND Internal Medicine Endocrinology, Diabetes & Metabolism | DX: M81.8 Other osteoporosis without current pathological fracture (principal); M85.852 Other specified disorders of bone density and structure, left thigh | CPT/HCPCS: 77080 ==